=== PATIENT | male | born 1955 | race Caucasian/White ===

== ENCOUNTER → 2016-11-12 08:59 | Outpatient (CLI) | payer MEDICARE ==
[2014-05-22 12:11] VITALS: BMI 40.5
[~2016-11-12 08:59] MED LIST: HYDROCHLOROTHIA25 MG PO; K-TAB10 MEQ PO; TOPROL XL25 MG PO
== END | disposition home or self-care (01) ==
LOC: D.US 11-11 11:30 → D.CT 11-11 14:00 → D.US 08:59
DX: I10 Essential (primary) hypertension (principal); E78.1 Pure hyperglyceridemia; Z87.891 Personal history of nicotine dependence

== ENCOUNTER → 2017-01-28 17:44 | Outpatient (CLI) | payer MEDICARE ==
[2014-05-22 12:11] VITALS: BMI 40.5
[~2017-01-28 17:44] MED LIST changes: +ASPIRIN325 MG PO; +ELIQUIS2.5 MG PO; +HYDROCODONE-APA1 TAB PO; +MAGNESIUM OXID250 MG PO; +MULTIPLE VITAMI1 TA1 PO; +NIASPAN500 MG PO; +REQUIP1 MG PO; +VITAMIN D31000 UNIT PO
== END | disposition home or self-care (01) ==
LOC: D.LABREF 17:44
DX: M16.11 Unilateral primary osteoarthritis, right hip (principal); Z11.8 Encounter for screening for other infectious and parasitic diseases

== ENCOUNTER 2017-02-04 10:00 | Inpatient (IN) | payer MEDICARE ==
[~2017-02-04 10:00] MED LIST changes: -ELIQUIS2.5 MG PO
[2017-02-04 11:23] LABS: BASOPHILS 0.3 % (0-2); EOSINOPHILS 1.6 % (0-7); HEMATOCRIT 40.9 % (42.0-54.0); IMMATURE GRANULOCYTES 0.3 % (0-5); LYMPHOCYTES 20.6 % (15-50); MCH 31.5 pg (26.0-34.0); MCHC 34.2 g/dL (31.0-37.0); MCV 92.1 fL (80.0-100.0); MONOCYTES 7.2 % (2-11); PLATELET COUNT 279 10x3/uL (130-400); RBC 4.44 10x6/uL (4.20-6.10); RDW 13.2 % (11.5-14.5); WBC 9.6 10x3/uL (4.8-10.8)
[2017-02-04 11:44] LABS: CALC OSMOLALITY 280 mosm/kg (275-300); CALCIUM 9.1 mg/dL (8.5-10.1); CARBON DIOXIDE 27.9 mmol/L (21.0-32.0); CHLORIDE - SERUM 104 mmol/L (98-107); CREATININE - SERUM 0.8 mg/dL (0.6-1.3); GLUCOSE 130 mg/dL (74-106); POTASSIUM - SERUM 4.4 mmol/L (3.5-5.1); SODIUM 139 mmol/L (136-145); UREA NITROGEN 16 mg/dL (7-18); eGFR NON AFRICAN AMERICAN > 90 mL/min (90-120)
[2017-02-04 11:49] LABS: APPEARANCE CLEAR (CLEAR); BILIRUBIN NEGATIVE (NEGATIVE); COLOR DK YELLOW (YELLOW); GLUCOSE NEGATIVE (NEGATIVE); KETONE NEGATIVE (NEGATIVE); NITRITE NEGATIVE (NEGATIVE); PROTEIN NEGATIVE (NEGATIVE); SPECIFIC GRAVITY 1.015 (1.005-1.020); UROBILINOGEN NORMAL (NORMAL)
[2017-02-04 11:53] LABS: APTT 29.9 SECONDS (22.8-39.4); INR 0.99 (0.85-1.17); PROTIME 12.9 SECONDS (11.6-15.0)
[2017-02-09 09:50] VITALS: BP 148/89; BMI 41.6
--- NOTE | 2017-02-09 13:37 | NUR ---
PT VOICES PAIN 3/10 ON NUMERIC SCALE. SAYS"I FEEL MUCH BETTER,IT TOLERABLE NOW".
--- NOTE | 2017-02-09 14:00 | NUR ---
PT RECIEVED TO ROOM 2209 FROM RECOVERY ROOM VIA BED AWAKE AND ALERT ORINTED X 3 DRESSING INTACT TO RIGHT HIP S/P TOTAL RIGHT HIP ARTHROPLASTY WITH DR STYLES. PT WITH NO C/O PAIN AT THIS TIME SCDS PLACED TO BLE. PEDAL PULSE INTACT
[2017-02-09 14:04] VITALS: BP 135/67
[2017-02-09 15:03] VITALS: BP 135/67; BMI 41.6
--- NOTE | 2017-02-09 16:00 | NUR ---
PT AWAKE FAMILY AT BEDSIDE PEDAL PULSES IN TACT. DRESSING IN PLACE TO RIGHT HIP.
--- NOTE | 2017-02-09 16:46 | OP ---
PATIENT NAME: GABINO ARTEAGA MEDICAL RECORD: [id number] :53 LOCATION:[id number] ADMISSION DATE:02/09/17 SURGEON: LON STYLES MD DATE OF OPERATION: 02/09/2017 PREOPERATIVE DIAGNOSIS: Severe degenerative arthritis, right hip. POSTOPERATIVE DIAGNOSIS: Severe degenerative arthritis, right hip. PROCEDURE: Right total hip arthroplasty. SURGEON: Lon Styles MD ANESTHESIA: General. INTRAOPERATIVE COMPLICATIONS: None. SUMMARY OF PATHOLOGIC FINDINGS: The patient has severe degenerative arthritis with multiple loose bodies in the acetabulum itself. IMPLANTS USED: [employer] Anato hip system, size 3 femoral component, size 36 standard femoral head, size 56 cup with a standard liner. ESTIMATED BLOOD LOSS: 300 cc. OPERATIVE SUMMARY IN DETAIL: After obtaining the appropriate preoperative orthopedic surgery consent as well as anesthetic consultation, evaluation and clearance, the patient was brought to the operating room and placed on the operating table in supine position. After adequate general endotracheal anesthesia was administered, the patient was placed in left lateral decubitus position. All pressure points were well padded to include down leg peroneal pad as well as axillary roll. The patient was held firmly to the operating table using the vacuum pack suction system. Right lower extremity and hip were then prepped and draped in a routine sterile fashion. Curvilinear incision was made over the greater trochanter, taken down to the IT band, which was split in line with fibers of the IT band to reveal gluteus medius minimus. These were reflected anteriorly, taken down to the hip capsule, which was split in a T-type fashion and saved for later reapproximation. At this point, the hip was dislocated, multiple loose bodies were removed. Femoral neck cut was made using the femoral neck cutting guide for the Anato system. Attention was then turned to the acetabulum. Circumferential labrectomy was followed by serial and sequential reaming to a size 55, size 56 Trident cluster cup was put into place with good fit and fill and no need for screws. Very good capture was achieved. Polyethylene insert was then put into place. It was checked with Yamilet forceps and found to be very stable. Attention was then turned to the femur. After removal of proximal bone using the [employer] cutter, serial broaching was done for a size 3. The entire proximal aspect was filled completely with the size 3 Anato stem in a very narrow distal femoral canal. Having completed this, this entire area was irrigated. The final implant was tamped into place. Trials were undertaken with the head. It was felt that the standard was the most appropriate standard, was tamped into place on the Rainey taper and it was reduced, taken through range of motion and found to be stable. Intraoperative radiographs were taken and OPERATIVE REPORT [id number] GABINO ARTEAGA showed good position and placement of all components. The wound was copiously irrigated and closed. The hip capsule was closed using #2 Ethibond. This was followed by #5 reapproximation of gluteus medius and minimus in a transosseous fashion to the greater trochanter. The IT band likewise was closed with #5 Ethibond. Having completed this, a #1 Vicryl was used for skin closure followed by skin jim. Sterile dressings were applied. The patient was awakened and extubated and taken to recovery room in stable condition. All final needle and sponge counts were correct. TRANSINT:[id number] Voice Confirmation ID: [id number] DOCUMENT ID: [id number] STEPHANI BARNETT, LON SMITH at 1646 CC: [id number] DICTATION DATE: 02/09/17 1320 CAMPUS ADMINISTRATIVE ASSISTANT: 02/09/17 1409 [facility] IN [place] [id number] [place] [id number]
--- NOTE | 2017-02-09 18:44 | NUR ---
PT WITH NO DISTRESS NOTED FAMILY AT SIDE
[2017-02-09 20:00] VITALS: BP 123/75
[2017-02-10] VITALS: BP 128/67
--- NOTE | 2017-02-10 02:00 | NUR ---
PT RESTING IN BED WITH NO DISTRESS. RESPIRATIONS EVEN AND UNLABORED. CPAP MACHINE ON. SIDE RAILS X 2. BED LOW. BED ALARM ON. CALL LIGHT IN REACH.
[2017-02-10 04:00] VITALS: BP 126/74
[2017-02-10 06:06] LABS: HEMATOCRIT 36.6 % (42.0-54.0); HEMOGLOBIN 12.7 g/dL (13.5-17.5); MCH 31.4 pg (26.0-34.0); MCHC 34.7 g/dL (31.0-37.0); MCV 90.4 fL (80.0-100.0); RBC 4.05 10x6/uL (4.20-6.10); RDW 13.1 % (11.5-14.5); WBC 11.5 10x3/uL (4.8-10.8)
--- NOTE | 2017-02-10 08:00 | NUR ---
REC'D IN BED AWAKE AND ALERT RESP EVEN AND UNLABORED WITH NO DISTRESS. CAN EXPRESS NEEDS AND WANTS. TURN AND REPOSITION SELF AB VIOLET. ASSESSMENT COMPLETED. C/L IN REACH AT BEDSIDE. C/L IN REACH AT BEDSIDE.
[2017-02-10 08:40] VITALS: BP 119/60
--- NOTE | 2017-02-10 09:12 | NUR ---
PT C/O PAIN AND NAUSEA WAS MEDICATED WITH NORCO AND ZOFRAN PER ORDERS. C/L IN REACH AT BEDSIDE.
[2017-02-10 11:50] VITALS: BP 118/61
[2017-02-10 16:11] VITALS: BP 142/88
--- NOTE | 2017-02-10 16:17 | NUR ---
AWAKE IN ALERT AT THIS TIME. RESPIRATIONS EVEN AND NON LABORED. INCISION TO RIGHT HIP WITH DRESSING C/D/I. SCD'S ON AND CALL LIGHT IN REACH. WILL CONTINUE WITH PLAN OF CARE.
[2017-02-10 20:00] VITALS: BP 137/71
--- NOTE | 2017-02-11 03:11 | NUR ---
2000) REC'D. CHGE. OF SHIFT.SITTING UP RIGHT IN BED.DRSG. RIGHT HIP DRY AND INTACT.FOOT WARM GOOD PEDAL PULSE WIGGLES TOES DORSIFLEXES DENIES CALF PAIN OR TENDERNESS ON DORSIFLEXION.WILL CONTINUE TO MONITOR FOR ANY CHGES.IN NEUROVASCULAR STATUS AND FOLLOW CURRENT PLAN OF CARE.
[2017-02-11 04:00] VITALS: BP 113/68
[2017-02-11 05:43] LABS: HEMATOCRIT 35.4 % (42.0-54.0); HEMOGLOBIN 12.1 g/dL (13.5-17.5); MCH 31.4 pg (26.0-34.0); MCHC 34.2 g/dL (31.0-37.0); MCV 91.9 fL (80.0-100.0); MEAN PLATELET VOLUME 9.1 fL (7.4-10.4); RBC 3.85 10x6/uL (4.20-6.10); RDW 13.6 % (11.5-14.5); WBC 10.1 10x3/uL (4.8-10.8)
--- NOTE | 2017-02-11 07:19 | NUR ---
REPORT RECEIVED FROM [employer]AW SHED HEATER TENDER NURSE. CALL LIGHT IN REACH.
--- NOTE | 2017-02-11 08:25 | NUR ---
PTS NURSE AT BEDSIDE AT THIS TIME. BED IN LOW POSITION AND CALL LIGHT WITHIN REACH. WILL CONTINUE TO MONITOR.
[2017-02-11] MEDS ORDERED: ELIQUIS2.5 MG PO (08:26)
[2017-02-11] MEDS ORDERED: HYDROCODONE-APA1 TAB PO (08:27)
--- NOTE | 2017-02-11 08:30 | NUR ---
ASSESSMENT COMPLETED. AM MEDS ADMINISTERED WITH NORCO PER C/O PAIN OF 6 TO RIGHT HIP INCISION. SCDs TO BLE. CALL LIGHT IN REACH. CM IN ROOM AT THIS TIME. WILL CONTINUE WITH PLAN OF CARE.
--- NOTE | 2017-02-11 08:31 | NUR ---
IV SL'D TO LEFT HAND PER MD ORDER. REFUSES PASSWORD.
[2017-02-11 08:33] VITALS: BP 114/74
--- NOTE | 2017-02-11 08:59 | NUR ---
Patient Name: GABINO ARTEAGA Admission Status: Elective Accout number: [id number] Admission Date: 02-09-2017 : 1955 Admission Diagnosis: Attending: LON STYLES Current LOS: 2 Anticipated DC Date: Planned Disposition: Home Primary Insurance: MEDICARE A & B Discharge Planning Comments: CM MET WITH PATIENT TO ASSESS DISCHARGE PLANNING NEEDS, PATIENT LIVES INDEPENDENTLY WITH HIS AT HOME AND THAT IS WHERE HE PLANS TO DISCHARGE. PATIENT HAS 4 STEPS TO ENTER IN HIS HOME. HE HAS A WALKER, SHOWER CHAIR, CPAP, AND BEDSIDE COMMODE AT HOME. PATIENT STATED THAT HE WOULD LIKE TO DO HIS PT AT [facility], CM WILL SET THAT UP PRIOR TO DISCHARGE. CM WILL CONTINUE TO FOLLOW AND ASSIST WITH DISCHARGE PLANNING NEEDS. PCP Y[facility]QUELIN P[facility]RE[facility] AND [facility] () [phone] Exotic Dancer: Jovana Westfall * Is the patient Alert and Oriented? Yes 0 * How many steps to enter\exit or inside your home? 4 0 * PCP YAQUELIN 0 * Pharmacy [facility] 0 * Preadmission Environment Home with Family 0 * ADLs Independent 0 * Equipment Bedside Commode CPAP Shower Chair Walker 0 * List name and contact numbers for known caregivers / representatives who currently or will assist patient after discharge: TAMANNA () [phone] 0 * Community resources currently utilized None 0 * Additional services required to return to the preadmission environment? Yes 0 * Can the patient safely return to the preadmission environment? Yes 0 * Has this patient been hospitalized within the prior 30 days at any hospital? No 0 Grand Total: 0
--- NOTE | 2017-02-11 09:19 | NUR ---
PATIENT SET UP WITH OPPT AT [facility] PT FIRST APPOINTMENT IS FOR ThursdayJan AT 1:00PM COPY OF PT APPOINTMENT GIVEN TO PATIENT WITH THEIR DC INSTRUCTIONS
--- NOTE | 2017-02-11 09:41 | NUR ---
STATES PAIN HAS DECREASED TO A 4. SIGNED OFF BY PT TO BE ABLE TO GO HOME. IV DC'D WITH TIP INTACT.
--- NOTE | 2017-02-11 11:16 | NUR ---
DRSG TO RIGHT HIP REMOVED, INCISION PAINTED WITH BETADINE, AND NEW DRSG APPLIED. STATES HE WOULD RATHER WAIR FOR HIS TO GET HERE TO GO OVER DC INSTRUCTIONS. CALL LIGHT IN REACH.
[2017-02-11 12:27] VITALS: BP 120/74
--- NOTE | 2017-02-11 12:30 | NUR ---
STILL WAITING ON TO PICK HIM UP AT THIS TIME.
--- NOTE | 2017-02-11 13:31 | NUR ---
DC INSTRUCTIONS EXPLAINED TO PATIENT AND . BOTH VERBALIZED UNDERSTANDING. RX FOR NORCO GIVEN TO PATIENT. DC'D TO VEHICLE VIA WC WITH .
== END 2017-02-11 13:31 | disposition home or self-care (01) | DRG 470 ==
LOC: D.SDCHOLD 10:00 → D.MS 02-09 05:10 → D.SDCHOLD 02-09 05:10 → D.MS 02-09 14:03 → D.SDCHOLD 02-09 16:15 → D.MS 02-11 13:31
PROVIDERS: ADMIT Orthopaedic Surgery
PROC: 0SC90ZZ Extirpation of Matter from Right Hip Joint, Open Approach (ICD-10-PCS; 2017-02-09)
PROC: 0SR90JZ Replacement of Right Hip Joint with Synthetic Substitute, Open Approach (ICD-10-PCS; principal; 2017-02-09 09:30)
DX: M16.11 Unilateral primary osteoarthritis, right hip (principal); Z68.41 Body mass index [BMI] 40.0-44.9, adult; M24.051 Loose body in right hip; E66.01 Morbid (severe) obesity due to excess calories; K21.9 Gastro-esophageal reflux disease without esophagitis; I10 Essential (primary) hypertension; Z87.891 Personal history of nicotine dependence

== ENCOUNTER → 2017-03-09 09:48 | Outpatient (CLI) | payer MEDICARE ==
[2017-02-09 15:03] VITALS: BMI 41.6
[~2017-03-09 09:48] MED LIST changes: +ELIQUIS2.5 MG PO
== END | disposition home or self-care (01) ==
LOC: D.ECHO 09:48 → D.CT 10:30
DX: I27.0 Primary pulmonary hypertension (principal); R91.1 Solitary pulmonary nodule

== ENCOUNTER → 2017-03-31 08:39 | Outpatient (CLI) | payer MEDICARE | END | disposition home or self-care (01) | LOC: D.RT 08:39 | DX: R06.09 Other forms of dyspnea (principal) ==

== ENCOUNTER → 2017-09-21 09:52 | Outpatient (CLI) | payer MEDICARE | END | disposition home or self-care (01) | LOC: D.ECHO 09:52 | DX: I27.20 Pulmonary hypertension, unspecified (principal) ==

== ENCOUNTER → 2018-03-26 09:52 | Outpatient (CLI) | payer MEDICARE ==
--- NOTE | ~2018-03-26 | EC ---
PATIENT:GABINO ARTEAGA DATE OF SERVICE: 03/26/18 SEX: M MEDICAL RECORD: [id number] DATE OF : 53 LOCATION:[facility] AGE OF PATIENT: 63 ADMISSION DATE: 03/26/18 REFERRING PHYSICIAN: INTERPRETING PHYSICIAN: THOM REGALADO MD ECHOCARDIOGRAM REPORT ECHO CHARGES 4 ECHO COMPLETE Date: 03/26/18 CLINICAL DIAGNOSIS: PULMONARY HTN,DYSPNEA ECHOCARDIOGRAPHIC MEASUREMENTS (adult normal given) AC root (d.<3.7cm) 4.7 cm LV Septum d (<1.2 cm> 2.1 cm Valve Excursion 2.1 cm LV Septum (systole) 2.3 cm Left Atria (s.<4.0cm> 4.3 cm LVPW d(<1.2cm) 1.9 cm RV (d.<2.3cm) 4.1 cm LVPW (sytole) 2.0 cm LV diastole(<5.6CM) 5.4 cm MV E-F(>70mm/sec) cm LV systole 2.3 cm LVOT Diameter 2.3 cm MV exc.(>10mm) 2.1 cm Est.ejection fraction (50-75%) % DOPPLER: LVIT cm/sec A 62.0 cm/sec E 74.0 cm/sec LA cm/sec RVSP 32 mmHg LVOT 134 cm/sec AOP1/2T m/s Asc. Ao 157 cm/sec RVOT 106 cm/sec RA cm/sec PA 150 cm/sec AV Gradient Peak 9.84 mmHg AV Mean 4.77 mmHg AV Area 3.9 cm MV Gradient Peak 4.45 mmHg MV Mean 1.29 mmHg MV Area cm COMMENTS: System Development Manager: Susie LUJAN Social Welfare Clerk: 1 Dr. Regalado TAPE# PACS Pericardial Effusion N DATE OF SERVICE: 03/26/2018 PROCEDURE: Echocardiogram. FINDINGS: 1. Left ventricular chamber size is within normal limits. Left ventricular systolic function is normal. Overall ejection fraction estimated at 55%. 2. Left atrium is enlarged at 4.3 cm. Right atrium and right ventricle chamber sizes are as well moderately dilated. 3. Valvular structures have normal structure and motion. ECHOCARDIOGRAM REPORT [id number] GABINO ARTEAGA 4. Doppler interrogation only reveals mild tricuspid regurgitation, no other valvular insufficiency or stenosis. Pulmonary systolic pressure is estimated at 32 mmHg. 5. No evidence of pericardial effusion or left ventricular thrombus. TRANSINT:[id number] Voice Confirmation ID: [id number] DOCUMENT ID: [id number] THOM REGALADO MD at 1108 CC: [id number] DICTATION DATE: 03/26/18 1558 CUSTOMS INSPECTOR: 03/27/18 0004 DEP CLI 03/26/18 [place] [id number] [place] [address]
== END | disposition home or self-care (01) ==
LOC: D.ECHO 09:52
DX: I27.21 Secondary pulmonary arterial hypertension (principal); R06.09 Other forms of dyspnea

== ENCOUNTER → 2019-10-13 10:32 | Outpatient (CLI) | payer MEDICARE | END | disposition home or self-care (01) | LOC: D.HCCECHO 10:32 | PROVIDERS: ATTEND Internal Medicine Cardiovascular Disease | DX: I10 Essential (primary) hypertension (principal) ==